=== PATIENT | male | born 1955 | race Caucasian/White ===

== ENCOUNTER → 2016-12-28 | Outpatient (REF) ==
[~2016-12-28] MED LIST: PRINIVIL10 MG PO
== END ==
LOC: ZLAB.WCH 18:11
DX: Z01.89 Encounter for other specified special examinations (principal)
CPT/HCPCS: G0103

== ENCOUNTER 2017-02-25 16:58 | Emergency (ER) | payer BC ==
[~2017-02-25] VITALS: Ht 172.7 cm; Wt 74.1 kg
[2017-02-25 17:03] VITALS: TEMP 97.6
[2017-02-25] MEDS ORDERED: PRINIVIL10 MG PO (17:08)
[2017-02-25 17:48] LABS: BASO % 0.5 % (0.0-2.0); EOS # 0.1 (0.0-0.7); EOS % 1.2 % (0-4.0); GRAN # 3.6 (1.4-6.5); GRAN % 60.7 % (42.2-75.2); HEMATOCRIT 42.8 % (42.0-52.0); HEMOGLOBIN 14.9 g/dl (13.5-18.0); LYMPH # 1.5 (1.2-3.4); LYMPH % 25.1 % (20.0-51.0); MEAN CELL VOLUME 96 fl (80.0-100.0); MEAN CORPUSCULAR HEMOGLOBIN 34 pg (27.0-31.0); MEAN CORPUSCULAR HGB CONC 35 g/dl (33.0-37.0); MEAN PLATELET VOLUME 9.9 fl (7.4-10.4); MONO # 0.7 (0.1-0.6); MONO % 12.3 % (1.7-9.3); PLATELET COUNT 115 K/mm3 (130-400); RED BLOOD COUNT 4.45 M/mm3 (4.20-5.60); REDCELL DISTRIBUTION WIDTH-CV 11.9 % (11.5-14.5); WHITE BLOOD COUNT 5.9 K/mm3 (4.8-10.8)
[2017-02-25 17:55] LABS: INR 0.9 (0.8-3.0); PROTHROMBIN TIME 10.2 SECONDS (9.7-12.8)
[2017-02-25 18:07] LABS: ALANINE AMINOTRANSFERASE 32 U/L (21-72); ALBUMIN 4.4 gm/dL (3.5-5.0); ALKALINE PHOSPHATASE 67 U/L (50-136); ANION GAP 10 mmol/L (7-16); BILIRUBIN,TOTAL 1.3 mg/dL (0.0-1.0); BLOOD UREA NITROGEN 32 mg/dL (9-20); CALCIUM 9.3 mg/dL (8.4-10.2); CARBON DIOXIDE 22 mmol/L (22-30); CHLORIDE 101 mmol/L (98-107); CREATINE KINASE 96 U/L (55-170); GLUCOSE 106 mg/dL (74-106); SODIUM 132 mmol/L (137-145); TOTAL PROTEIN 8.3 gm/dL (6.4-8.2)
[2017-02-25 18:24] LABS: POTASSIUM 5.9 mmol/L (3.4-5.0); TROPONIN-I < 0.012 ng/mL (0.000-0.034)
[2017-02-25 20:24] LABS: CALCIUM 9.1 mg/dL (8.4-10.2); CREATININE, serum 1.02 mg/dL (0.66-1.25)
[2017-02-25 20:32] LABS: POTASSIUM 4.8 mmol/L (3.4-5.0)
[2017-02-25 21:07] VITALS: BP 147/95; PULSE 86
== END 2017-02-25 21:08 | disposition home or self-care (01) ==
LOC: COL.ER 16:58
PROVIDERS: Emergency Medicine
DX: R42 Dizziness and giddiness (principal); E86.0 Dehydration; E87.5 Hyperkalemia; I10 Essential (primary) hypertension; F17.220 Nicotine dependence, chewing tobacco, uncomplicated
CPT/HCPCS: J0610; J1815; J7030

== ENCOUNTER 2017-10-14 09:06 | Outpatient (CLI) | payer BC ==
[2017-10-14] VITALS (10 sets, daily range): BP systolic 139–176; BP diastolic 91–113; PULSE 72–99; TEMP 97.8–98
[~2017-10-14] VITALS: Ht 172.8 cm; Wt 75.5 kg
[2017-10-14] MEDS ORDERED: MOBIC 7.5MG7.5 MG PO (10:07)
[2017-10-14] MEDS ORDERED: ULTRAM 50MG TAB50 MG PO (10:08)
== END 2017-10-14 16:17 | disposition home or self-care (01) ==
LOC: COL.CAR 09:06
DX: S22.080A Wedge compression fracture of T11-T12 vertebra, initial encounter for closed fracture (principal); I10 Essential (primary) hypertension
CPT/HCPCS: C1713; J0360; J2250; J3010; J7120

== ENCOUNTER 2020-09-12 11:33 | Inpatient (IN) | payer MEDICARE, BC ==
[~2020-09-12] VITALS: Ht 172.7 cm; Wt 79.5 kg
[~2020-09-12 11:33] MED LIST changes: +MOBIC 7.5MG7.5 MG PO; +ULTRAM 50MG TAB50 MG PO
[2020-09-12] MEDS ORDERED: ASPIRIN 81M81 MG/TA2 PO (12:30)
[2020-09-12 12:32] LABS: BASO % 0.3 % (0.0-2.0); EOS % 0.1 % (0-4.0); GRAN # 6.9 (1.4-6.5); GRAN % 77.8 % (42.2-75.2); HEMATOCRIT 36.8 % (42.0-52.0); HEMOGLOBIN 13.6 g/dl (13.5-18.0); LYMPH # 1.1 (1.2-3.4); LYMPH % 12.6 % (20.0-51.0); MEAN CELL VOLUME 99 fl (80.0-100.0); MEAN CORPUSCULAR HEMOGLOBIN 37 pg (27.0-31.0); MEAN CORPUSCULAR HGB CONC 37 g/dl (33.0-37.0); MEAN PLATELET VOLUME 10.8 fl (7.4-10.4); MONO # 0.8 (0.1-0.6); MONO % 8.6 % (1.7-9.3); PLATELET COUNT 118 K/mm3 (130-400); RED BLOOD COUNT 3.73 M/mm3 (4.20-5.60); REDCELL DISTRIBUTION WIDTH-CV 12.3 % (11.5-14.5)
[2020-09-12 12:41] LABS: ALBUMIN 3.2 gm/dL (3.5-5.0); BILIRUBIN,TOTAL 2.4 mg/dL (0.0-1.0); CREATININE, serum 0.71 (0.66-1.25); TOTAL PROTEIN 6.6 gm/dL (6.4-8.2)
[2020-09-12 12:46] LABS: POTASSIUM 2.4 mmol/L (3.4-5.0)
[2020-09-12 13:17] LABS: INR 1.1 (0.8-3.0); PROTHROMBIN TIME 12.7 SECONDS (9.7-12.8)
--- NOTE | 2020-09-12 14:28 | NUR ---
Sw consulted for patient in ED. Patient in room with sister Barbara Jj . Who is emergency contact. Patient reports that he has a friend Bakari Brown who helps sometimes. Patient has two estranged adult children who are not involved with him after his divorce, Annalee Luu in [place] and Annie Mccallum in [place]. Patient reports that he lives in [place] with his dog and he is could because he does not have heat. Patient reports that he has a pellet heater and has to put the pellets in but does not have the energy to do so. Patient reports that he often curls up with his dog and in his blanket. Patient reports that he has a new primary care at the [facility] who he first seen today. Allision, Unknown last name. Michele rpeorts that he would be does not want anyone in his home and that it is not in repair for anyone. Sister confirms the state of the clients home and it not being safe for a home health care worker to go in. Patient is visibily poor hygiene with brown debris on feet and under finger nails. Patient reports he has water but will not get in the bath because it was to cold. SW offered supports to help patient establish safe living conditions. Patient refused help and states that he must clean the home first. Patient reports that he obtains medications from [employer] and his friend Bakari helps with transpotation or sister. Patient no linger drives. Patient denies having any DME use and is independent living. Concerns of patient not eating. Educated patient on next step for safety and refusing to allow anyone to help. APS consult placed by worker #[id number] at 09/12/2020 2:26pm.
[2020-09-12 15:49] LABS: MAGNESIUM 1.5 mg/dL (1.6-2.3); PHOSPHOROUS 1.4 mg/dL (2.5-4.5)
--- NOTE | 2020-09-12 18:00 | NUR ---
PATIENT ADMITED INTO ROOM 307 FROM ER WITH GI BLEED, ELEVATED TROPONIN, AND ETOH. PATIENT IS A&O. VSS WITH TELE. DNR. IV FLUIDS INFUSING INTO LEFT FORARM IV VIA PUMP. CLEAR LIQUID DIET. GI CONSULT. HEAD TO TOE ASSESSMENT COMPLETE.
[2020-09-12 18:15] VITALS: BP 138/85; PULSE 91; TEMP 97.7
[2020-09-12 19:37] VITALS: BP 103/61; PULSE 100; TEMP 98.1
--- NOTE | 2020-09-12 20:00 | NUR ---
Assessment complete. Patient is currently resting in bed; He is alert and oriented for all questions besides the year; When asked a second time about the year, he is able to answer to correctly. He has no complaints of pain; No edema is present. He is tachycardic in the 90's and has a slight hand tremor. Fluids infusing into left forearm IV. Call light in reach. His sister Susie has been updated on patient's status. Will continue to monitor.
[2020-09-12 20:46] LABS: HEMOGLOBIN 12.2 g/dl (13.5-18.0)
[2020-09-12 20:52] LABS: HEMATOCRIT 33.4 % (42.0-52.0)
[2020-09-12 20:56] LABS: ANION GAP 2 mmol/L (7-16); BLOOD UREA NITROGEN 8 mg/dL (9-20); CALCIUM 7.5 mg/dL (8.4-10.2); CARBON DIOXIDE 35 mmol/L (22-30); CHLORIDE 95 mmol/L (98-107); CREATININE, serum 0.69 (0.66-1.25); GLUCOSE 106 mg/dL (74-106); POTASSIUM 3.1 mmol/L (3.4-5.0); SODIUM 132 mmol/L (137-145)
[2020-09-12 21:01] LABS: ALCOHOL(ethanol),MEDICAL < 10 mg/dL
[2020-09-12 23:19] VITALS: BP 120/73; PULSE 97; TEMP 98.4
[2020-09-13] VITALS (9 sets, daily range): BP systolic 124–142; BP diastolic 76–96; PULSE 84–106; TEMP 97.6–98.8
--- NOTE | 2020-09-13 06:19 | NUR ---
Patient has had an uneventful night. He has ambulated with assistance to the bathroom multiple times to void. He is still slightly disoriented at times but does answer orientation questions correctly. He has scored 4-6 on CIWA scale but has not required any Ativan, as he has remained pleasant, non-agitated and not impulsive. Will continue to monitor.
--- NOTE | 2020-09-13 06:59 | NUR ---
ENTERED PT ROOM, SET BED ALARM, PT SLEEPING COMFORTABLY
[2020-09-13 07:03] LABS: BASO % 0.6 % (0.0-2.0); EOS # 0.1 (0.0-0.7); EOS % 1.1 % (0-4.0); GRAN # 3.4 (1.4-6.5); GRAN % 62.5 % (42.2-75.2); HEMOGLOBIN 11.7 g/dl (13.5-18.0); LYMPH # 1.4 (1.2-3.4); LYMPH % 25.6 % (20.0-51.0); MEAN CORPUSCULAR HEMOGLOBIN 37 pg (27.0-31.0); MEAN CORPUSCULAR HGB CONC 35 g/dl (33.0-37.0); MEAN PLATELET VOLUME 11.4 fl (7.4-10.4); MONO # 0.5 (0.1-0.6); MONO % 9.8 % (1.7-9.3); PLATELET COUNT 76 K/mm3 (130-400); RED BLOOD COUNT 3.19 M/mm3 (4.20-5.60); REDCELL DISTRIBUTION WIDTH-CV 12.6 % (11.5-14.5)
[2020-09-13 07:05] LABS: HEMATOCRIT 33.1 % (42.0-52.0); MEAN CELL VOLUME 104 fl (80.0-100.0)
[2020-09-13 07:17] LABS: ALBUMIN 2.7 gm/dL (3.5-5.0); BILIRUBIN,TOTAL 1.5 mg/dL (0.0-1.0); CALCIUM 7.3 mg/dL (8.4-10.2); CREATININE, serum 0.63 (0.66-1.25); MAGNESIUM 1.9 mg/dL (1.6-2.3); PHOSPHOROUS 2.3 mg/dL (2.5-4.5); TOTAL PROTEIN 5.7 gm/dL (6.4-8.2)
[2020-09-13 07:23] LABS: POTASSIUM 2.8 mmol/L (3.4-5.0)
[2020-09-13 07:34] LABS: TROPONIN-I 0.063 ng/mL (0.000-0.035)
[2020-09-13 09:10] LABS: COLLECTION METHOD CLEAN CATCH
[2020-09-13 09:18] LABS: PH 7 (5-8); SQUAMOUS EPITHELIAL None Seen /hpf; URINE APPEARANCE Clear; URINE BACTERIA None Seen /hpf; URINE BILIRUBIN Negative (NEGATIVE); URINE BLOOD Negative (NEGATIVE); URINE COLOR Yellow; URINE GLUCOSE Negative (NEGATIVE); URINE KETONE Negative (NEGATIVE); URINE LEUKOCYTE ESTERASE Negative (NEGATIVE); URINE NITRATE Negative (NEGATIVE); URINE PROTEIN(semi-quant) Negative (NEGATIVE); URINE RBC 0-2 /hpf; URINE UROBILINOGEN >=4.0 mg/dL (NEGATIVE)
[2020-09-13 09:20] LABS: MUCOUS Present /lpf
--- NOTE | 2020-09-13 09:38 | NUR ---
PT AOX4, FALSE PASS, PT REPORTS PAIN DANICA FEET, FEET HAVE DRIED SKIN NO APPARENT WOUNDS, ICE WATER BROUGHT IN TO PT, MEDICATIONS GIVEN, POTASSIUM REPLACED PER PROTOCOL, NO OTHER NEEDS.
[2020-09-13 12:52] LABS: HEMOGLOBIN 12.2 g/dl (13.5-18.0)
--- NOTE | 2020-09-13 12:52 | NUR ---
NOTIFIED KAVYA CROW OF ORTHOSTATIC PRESSURES.
[2020-09-13 12:54] LABS: HEMATOCRIT 34.6 % (42.0-52.0)
[2020-09-13 13:00] LABS: CALCIUM 7.5 mg/dL (8.4-10.2); CREATININE, serum 0.63 (0.66-1.25); POTASSIUM 3.3 mmol/L (3.4-5.0)
--- NOTE | 2020-09-13 16:52 | NUR ---
Audiovisual Production Specialist followed up with patient and patient's sister, Barbara about discharge plan. SW advised PT/OT recommend post acute rehab. Patient is agreeable to this and would like referrals sent to [facility] and [facility]. SW faxed referrals and will continue to follow.
--- NOTE | 2020-09-13 17:37 | NUR ---
PT IMPULSIVE, TRIES TO GET UP MULTIPLE TIMES, INC OF STOOL, BOWL PREP INITIATED, CONSENT OBTAINED, FAMILY UPDATED ON SITUATION, NO OTHER NEEDS.
--- NOTE | 2020-09-13 18:18 | NUR ---
NURSE LOOKED INTO ROOM AND PT WAS SITTING ON HIS KNEES. TABLE WAS OVERTURNED, IV LINE WAS PULLED TAUGHT BUT STILL INTACT, PT HELPED BACK INTO BED, VITALS TAKEN, ATIVAN GIVEN, BOO CROW NOTIFIED OF SITUATION.
--- NOTE | 2020-09-13 21:50 | NUR ---
PT DOWN IN CT AFTER FALL AT SHIFT CHANGE. AFTER COMING BACK UP ATTEMPTED TO GET OUT OF BED SETTIN OFF ALARM , PULLED OUT IV SITE AND SPLIT GOLYTLY ALL OVER. HARD TO ASSESS PT DOESNT ANSWER QUESTOINS APPROPRIATLY. IV RESTARTED TO RT AC. NOT ABLE TO GET HIM TO DRINK FOR BOWEL PREP. CHARGE NOTIFIED AND WILL LET DOCS KNOW IN AM. BED ALARM ON PRN ATIVAN GIVEN
[2020-09-14 16:14] LABS: CLOSTRIDIUM DIFF A/B NEG; CLOSTRIDIUM DIFF A/B INTERP No C.diff present
[2020-09-14 22:38] VITALS: BP 136/88; BP 139/89; PULSE 88; PULSE 94; TEMP 97.9; TEMP 98.6
--- NOTE | 2020-09-14 23:21 | NUR ---
2000- PT STARTING TO GET MORE AGITATED DURING ASSESSMENT. SITTER AT BEDSIDE FOR SAFTY. MITS ON HAND. BED IN LOW POSTION. VISIBLE TREMORS AND TACTIL HALLCINATION. IV FLUIDS CONT TO RUN PER ORDER. PRN ATIVAN GIVEN NEEDED PER SCORE. BRIEF CHANGED, LINENS CHANGED.
[2020-09-15] VITALS (9 sets, daily range): BP systolic 13–140; BP diastolic 74–90; PULSE 85–101; TEMP 97.7–98.6
--- NOTE | 2020-09-15 01:38 | NUR ---
Pt has been resting quietly, episodes of apnea. Sitter remains at bedside for safty. Continue monitoring.
--- NOTE | 2020-09-15 04:34 | NUR ---
PT CONTINUES TO REST TONIGHT. NOTED SOME APNIC BREATHING AT TIMES. SITTER REMAINS AT BEDSIDE.
[2020-09-15 07:06] LABS: BASO # 0.1 (0.0-0.2); BASO % 0.8 % (0.0-2.0); EOS # 0.2 (0.0-0.7); EOS % 3.9 % (0-4.0); GRAN # 3.6 (1.4-6.5); GRAN % 59.6 % (42.2-75.2); HEMOGLOBIN 12.8 g/dl (13.5-18.0); LYMPH # 1.3 (1.2-3.4); LYMPH % 20.9 % (20.0-51.0); MEAN CELL VOLUME 104 fl (80.0-100.0); MEAN CORPUSCULAR HEMOGLOBIN 37 pg (27.0-31.0); MEAN CORPUSCULAR HGB CONC 36 g/dl (33.0-37.0); MEAN PLATELET VOLUME 10.1 fl (7.4-10.4); MONO # 0.9 (0.1-0.6); MONO % 14.1 % (1.7-9.3); PLATELET COUNT 119 K/mm3 (130-400); RED BLOOD COUNT 3.47 M/mm3 (4.20-5.60); REDCELL DISTRIBUTION WIDTH-CV 12.9 % (11.5-14.5)
[2020-09-15 07:29] LABS: ALBUMIN 2.8 gm/dL (3.5-5.0); BILIRUBIN,TOTAL 1.2 mg/dL (0.0-1.0); CALCIUM 7.8 mg/dL (8.4-10.2); CREATININE, serum 0.56 (0.66-1.25); MAGNESIUM 1.8 mg/dL (1.6-2.3); PHOSPHOROUS 3.1 mg/dL (2.5-4.5); POTASSIUM 3.9 mmol/L (3.4-5.0); TOTAL PROTEIN 6.2 gm/dL (6.4-8.2)
--- NOTE | 2020-09-15 07:37 | NUR ---
Patient laying at an angle in bed. Patient A&Ox4. IV CDI, fluids infusing. VSS. Mitts on hands, patient states "want to get these the hell off" Nurse informed patient that he has pulled several IV's out and its to help him to prevent that from happening again. Patient incontinent of urine. Nursing staff provided total care and repositioned patient for comfort. Call light within reach. Bed alarm on and door left open.
--- NOTE | 2020-09-15 08:42 | NUR ---
(late entry 09/14) Onelia from [facility] reports they can accept the patient for post acute rehab. [facility] declined the patient.
[2020-09-15 09:48] LABS: ALANINE AMINOTRANSFERASE 36 U/L (4-49); ALBUMIN 2.8 gm/dL (3.5-5.0); ALKALINE PHOSPHATASE 70 U/L (50-136); ANION GAP 4 mmol/L (7-16); AST,SGOT 87 U/L (15-37); BILIRUBIN,TOTAL 1.1 mg/dL (0.0-1.0); BLOOD UREA NITROGEN < 2 mg/dL (9-20); CALCIUM 7.6 mg/dL (8.4-10.2); CARBON DIOXIDE 34 mmol/L (22-30); CHLORIDE 99 mmol/L (98-107); CREATININE, serum 0.58 (0.66-1.25); GLUCOSE 91 mg/dL (74-106); MAGNESIUM 1.7 mg/dL (1.6-2.3); PHOSPHOROUS 3.5 mg/dL (2.5-4.5); POTASSIUM 3.1 mmol/L (3.4-5.0); SODIUM 137 mmol/L (137-145)
--- NOTE | 2020-09-15 14:31 | NUR ---
Dry Kiln Feeder met with the patient and his sister, Barbara to follow up. The patient was sleeping. She reports she has received a call from Onelia at [facility] regarding placement and possibly having the patient complete DPOA- paperwork. The patient was hard to rouse and this SW did not discuss DPOA- paperwork at this time. The patient is not but has two daughters, Nate lives in [place] and Annalee lives in [place]. Annalee's phone number is . CLAUDIO faxed updates to [facility].
[2020-09-15 14:35] LABS: BASO % 0.6 % (0.0-2.0); EOS # 0.1 (0.0-0.7); EOS % 2.6 % (0-4.0); GRAN % 58.7 % (42.2-75.2); HEMOGLOBIN 12.3 g/dl (13.5-18.0); LYMPH # 1.3 (1.2-3.4); LYMPH % 24.7 % (20.0-51.0); MEAN CELL VOLUME 106 fl (80.0-100.0); MEAN CORPUSCULAR HEMOGLOBIN 37 pg (27.0-31.0); MEAN CORPUSCULAR HGB CONC 35 g/dl (33.0-37.0); MEAN PLATELET VOLUME 10.4 fl (7.4-10.4); MONO # 0.7 (0.1-0.6); MONO % 12.8 % (1.7-9.3); PLATELET COUNT 95 K/mm3 (130-400); RED BLOOD COUNT 3.32 M/mm3 (4.20-5.60); REDCELL DISTRIBUTION WIDTH-CV 12.9 % (11.5-14.5)
[2020-09-15 14:36] LABS: HEMATOCRIT 35.1 % (42.0-52.0)
--- NOTE | 2020-09-15 15:49 | NUR ---
Shell Molding Roller Blast Operator contacted Onelia with [facility]. She states if the patient is ready for discharge on Saturday, 09/16 the latest they need to know by is 1000 so they can get their team ready. Otherwise they will not be able to accept until September 19. They will be able to provide transporation.
--- NOTE | 2020-09-15 16:27 | NUR ---
Pitching Coach faxed clinical updates to [facility].
--- NOTE | 2020-09-15 18:22 | NUR ---
Patient slept most of the shift. Has been A&Ox4, with intermittent confusion after waking up. VSS. IV CDI, fluids infusing. Denies pain and discomfort. Mitts removed and patient has not tried to take IV's out. Bowel prep started on patient and the patient verbalized an understanding for starting. No further needs expressed from the patient. Call light within reach. Bed alarm on, door left open
--- NOTE | 2020-09-15 19:30 | NUR ---
RECEIVED CHANGE OF SHIFT REPORT FROM DAY SHIFT NURSE.
--- NOTE | 2020-09-15 20:30 | NUR ---
PATIENT COOPERATIVE AT THIS TIME, NEEDS REMINDERS TO DRINK GOLYTELY PREP, HAS NO COMPLAINTS OF ABDOMINAL DISCOMFORT OR NAUSEA AT THIS TIME. OBSERVED NO TREMORS AT THIS TIME. IVF INFUSING WITH NO PROBLEMS. TELE IN PLACE.
[2020-09-16] VITALS (12 sets, daily range): BP systolic 110–155; BP diastolic 66–98; PULSE 83–106; TEMP 97.7–98.6
--- NOTE | 2020-09-16 06:00 | NUR ---
OBSERVED STOOL CLEAR LIGHT GREEN IN COLOR.
[2020-09-16 06:33] LABS: ALANINE AMINOTRANSFERASE 26 U/L (4-49); ALBUMIN 2.8 gm/dL (3.5-5.0); ALKALINE PHOSPHATASE 74 U/L (50-136); ANION GAP 4 mmol/L (7-16); AST,SGOT 52 U/L (15-37); BILIRUBIN,TOTAL 1.1 mg/dL (0.0-1.0); CALCIUM 7.8 mg/dL (8.4-10.2); CARBON DIOXIDE 30 mmol/L (22-30); CHLORIDE 102 mmol/L (98-107); CREATININE, serum 0.56 (0.66-1.25); GLUCOSE 102 mg/dL (74-106); MAGNESIUM 1.9 mg/dL (1.6-2.3); POTASSIUM 3.5 mmol/L (3.4-5.0); SODIUM 136 mmol/L (137-145); TOTAL PROTEIN 6.1 gm/dL (6.4-8.2)
[2020-09-16 06:34] LABS: BLOOD UREA NITROGEN < 2 mg/dL (9-20)
[2020-09-16 06:57] LABS: HEMATOCRIT 36.1 % (42.0-52.0); HEMOGLOBIN 12.8 g/dl (13.5-18.0); MEAN CELL VOLUME 103 fl (80.0-100.0); MEAN CORPUSCULAR HEMOGLOBIN 37 pg (27.0-31.0); MEAN CORPUSCULAR HGB CONC 36 g/dl (33.0-37.0); MEAN PLATELET VOLUME 9.9 fl (7.4-10.4); PLATELET COUNT 149 K/mm3 (130-400); RED BLOOD COUNT 3.49 M/mm3 (4.20-5.60); REDCELL DISTRIBUTION WIDTH-CV 12.9 % (11.5-14.5)
--- NOTE | 2020-09-16 07:05 | NUR ---
CHANGE OF SHIFT REPORT GIVEN TO DAY SHIFT NURSEKAVYA RN
--- NOTE | 2020-09-16 07:19 | NUR ---
Pt resting with eyes closed even non labored breathing
--- NOTE | 2020-09-16 09:14 | NUR ---
Several attempts to visit; Patient sleeping, Electron Microscopist left card letting patient know of Electron Microscopist's availability to provide Spiritual Care.
--- NOTE | 2020-09-16 10:45 | NUR ---
Pt sleeping off and on this morning. When he is awake he is impatient regarding having the colonoscopy. No pain complaints. Will continue to monitor
--- NOTE | 2020-09-16 12:13 | NUR ---
Pt continues to be off the floor for procedure
--- NOTE | 2020-09-16 13:54 | NUR ---
Primary nurse was assisted with [phone] patient care by [employer] [facility] Jewell Avina and [employer] instructor Christina Saez RN-BC.
--- NOTE | 2020-09-16 15:29 | NUR ---
Pt has done well since getting back from procedure. He has tolerated a general diet and is now resting with eyes closed, even non labored breathing.
--- NOTE | 2020-09-16 16:31 | NUR ---
Calender Machine Operator met with the patient and the patient's sister, Barbara to review the discharge plan. They both were in agreeance with a discharge to [facility] for post acute rehab on Saturday if the patient is medically stable.
--- NOTE | 2020-09-16 17:51 | NUR ---
Pt doing well, he is in a pleasent mood. No complaints at this time, he is eating dinner. No needs verbalized, will continue to monitor
--- NOTE | 2020-09-16 19:04 | NUR ---
Pt has continued to do well. He is having liquid stools and does need to go quickly. Bed alarm on, report given
--- NOTE | 2020-09-16 19:24 | NUR ---
RECEIVED CHANGE OF SHIFT REPORT FROM DAY SHIFT NURSE.
--- NOTE | 2020-09-16 20:00 | NUR ---
DENIES CHEST PAIN/SHORTNESS BREATH. DENIES ANY PAIN TO SELF/BODY. SALINE LOCK INT AND IN PLACE. TELE IN PLACE. BED ALARM ON, WHEN IN BED.
[2020-09-17] VITALS (7 sets, daily range): BP systolic 96–132; BP diastolic 65–93; PULSE 77–96; TEMP 97.7–98.9
[2020-09-17 06:49] LABS: BASO % 0.8 % (0.0-2.0); EOS # 0.2 (0.0-0.7); EOS % 3.1 % (0-4.0); GRAN # 2.8 (1.4-6.5); GRAN % 54.3 % (42.2-75.2); HEMOGLOBIN 12.4 g/dl (13.5-18.0); LYMPH # 1.4 (1.2-3.4); LYMPH % 27.6 % (20.0-51.0); MEAN CELL VOLUME 105 fl (80.0-100.0); MEAN CORPUSCULAR HEMOGLOBIN 36 pg (27.0-31.0); MEAN CORPUSCULAR HGB CONC 35 g/dl (33.0-37.0); MEAN PLATELET VOLUME 10.2 fl (7.4-10.4); MONO # 0.7 (0.1-0.6); MONO % 13.4 % (1.7-9.3); PLATELET COUNT 179 K/mm3 (130-400); RED BLOOD COUNT 3.41 M/mm3 (4.20-5.60)
[2020-09-17 07:00] LABS: CALCIUM 7.9 mg/dL (8.4-10.2); CREATININE, serum 0.57 (0.66-1.25); POTASSIUM 3.6 mmol/L (3.4-5.0)
[2020-09-17 07:13] LABS: HEMATOCRIT 35.7 % (42.0-52.0)
--- NOTE | 2020-09-17 07:20 | NUR ---
Pt doing well, he is awake and I assisted him with ordering breakfast. No other needs verbalized, will continue to monitor
--- NOTE | 2020-09-17 07:52 | NUR ---
CHANGE OF SHIFT REPORT GIVEN TO DAY SHIFT NURSEKAVYA RN
--- NOTE | 2020-09-17 16:52 | NUR ---
Pt has done well today. He is alert and oriented. He mostly uses his call light when he needs to use the restroom. Bed alarm is on. He does use a walker and is mostly steady on his feet. Pt did take a shower today. No pain complaints and he is aware that he is going to [place] on Saturday.
--- NOTE | 2020-09-17 20:00 | NUR ---
Assessment complete. Patient is awake in bed; He is alert and oriented with no complaints of pain. Heart sounds are normal/regular, lungs clear, bowel sounds audible in all quadrants. No edema or skin issues are noted. Left wrist INT flushes well. Patient breathing well on RA and swallows pills whole with no issues. Bed alarm on and call light in reach,
[2020-09-18 00:47] VITALS: BP 128/80; PULSE 84; TEMP 99.4
[2020-09-18 04:27] VITALS: BP 142/87; PULSE 85; TEMP 98
[2020-09-18 06:52] LABS: CALCIUM 8.2 mg/dL (8.4-10.2); CREATININE, serum 0.61 (0.66-1.25); MAGNESIUM 1.7 mg/dL (1.6-2.3); POTASSIUM 3.6 mmol/L (3.4-5.0)
[2020-09-18 07:18] VITALS: BP 153/91; PULSE 86; TEMP 97.6
--- NOTE | 2020-09-18 08:11 | NUR ---
Pt awake and alert upon entry, sitting on side of bed eating breakfast. No C/O pain at this time. Shift assessments complete, left Pt sales management trainee of bed, call light in reach.
[2020-09-18 11:38] VITALS: BP 120/72; PULSE 91; TEMP 97.4
[2020-09-18 16:18] VITALS: BP 122/75; PULSE 80; TEMP 98.5
[2020-09-18 19:43] VITALS: BP 107/64; PULSE 84; TEMP 98.7
--- NOTE | 2020-09-18 20:41 | NUR ---
Patient laying in bed and reading book upon shift start. Patient alert and oriented. Patient denies any pain or discomfort. Denies SOB or dyspnea. Patient on room air. VS stable. No acute distress noted. K+ level was 3.6 today. Replaced potassium per protocol. All scheduled meds given per SEP. Call light within reach. Patient denies any needs at this time.
[2020-09-19] VITALS: BP 124/75; PULSE 84; TEMP 98.2
[2020-09-19 04:30] VITALS: BP 124/82; PULSE 75; TEMP 98.3
--- NOTE | 2020-09-19 06:02 | NUR ---
Patient slept on and off over the night. VS remains stable. No acute distress noted. Call light within reach. Patient denies any needs at this time.
--- NOTE | 2020-09-19 07:06 | NUR ---
Report with DAMIÁN Tapia. Pt gets assistance from DIRECTOR OF CORPORATE RESPONSIBILITY to get dressed, takes Telemetry off to be "ready to go." No further needs reported. Call light in reach. Bed alarm on.
[2020-09-19] MEDS ORDERED: FOLIC ACID 11 MG/TA1 PO (07:46)
[2020-09-19] MEDS ORDERED: PROTONIX 40MG T40 MG PO (07:46)
[2020-09-19] MEDS ORDERED: THIAMINE 1100 MG/TAB PO (07:46)
[2020-09-19] MEDS ORDERED: DUO-KAPS1 CAP PO (07:47)
--- NOTE | 2020-09-19 08:30 | NUR ---
Assessment complete. Pt resting in bed, A&O x 3, denies pain at this time. Physical assesment unremarkable. Pt reports feeling ready for discharge. Saline lock IV to left forearm without s/s of complications. No further needs reported. Call light in reach. Bed alarm on.
[2020-09-19] MEDS ORDERED: MAG-OX 400400 MG/TAB PO (08:39)
[2020-09-19 08:41] VITALS: BP 112/75; PULSE 88; TEMP 97.7
--- NOTE | 2020-09-19 09:56 | NUR ---
The patient is ready to d/c today, 09/19. CLAUDIO notified and faxed updates to Onelia at [facility]. Onelia requested updates from over the weekend. CLAUDIO faxed updates to [facility]. Onelia reports that they are able to take the patient. CLAUDIO contacted and updated the patient's sister, Barbara. The patient is to discharge today, 09/19, to [facility] for a skilled stay. Transportation was scheduled at 1230, via [facility]. CLAUDIO informed the patient's RN and his sister, Barbara, of the time. They were both agreeable to the time. CLAUDIO presented and read the IM form outloud to the patient. The patient verbalized understanding and gave CLAUDIO approval to sign the form on his behalf. CLAUDIO provided him with a copy. No additional needs at this time.
[2020-09-19 12:00] VITALS: BP 112/75; PULSE 88; TEMP 97.7
[2020-09-19 12:05] VITALS: BP 101/66; PULSE 95; TEMP 97.8
--- NOTE | 2020-09-19 12:33 | NUR ---
Report called to Brandi, nurse at [facility]. IV discontinued from left forearm with tip intact.
--- NOTE | 2020-09-19 12:45 | NUR ---
Pt discharged to [facility] via WC accompanied by SNF staff.
--- NOTE | 2020-09-21 09:16 | NUR ---
human services worker informed Eveline with Adult Protective Services that patient was transferred to [facility] upon discharge Socorro stated she will meet with patient this date.
== END 2020-09-19 12:45 | DRG 393 ==
LOC: COL.ER 11:33 → MEDICAL 15:39
PROVIDERS: Internal Medicine Gastroenterology; Physician Assistant; ADMIT Hospitalist
PROC: 0DBN8ZX Excision of Sigmoid Colon, Via Natural or Artificial Opening Endoscopic, Diagnostic (ICD-10-PCS; 2020-09-16)
PROC: 0DB68ZX Excision of Stomach, Via Natural or Artificial Opening Endoscopic, Diagnostic (ICD-10-PCS; principal; 2020-09-16 10:45)
PROC: 0DBK8ZZ Excision of Ascending Colon, Via Natural or Artificial Opening Endoscopic (ICD-10-PCS; 2020-09-16 10:45)
DX: K55.9 Vascular disorder of intestine, unspecified (principal); I21.A1 Myocardial infarction type 2; F10.139 Alcohol abuse with withdrawal, unspecified; E87.1 Hypo-osmolality and hyponatremia; I10 Essential (primary) hypertension; I95.1 Orthostatic hypotension; D69.6 Thrombocytopenia, unspecified; E87.8 Other disorders of electrolyte and fluid balance, not elsewhere classified; E87.6 Hypokalemia; E83.42 Hypomagnesemia; E83.39 Other disorders of phosphorus metabolism; E80.6 Other disorders of bilirubin metabolism; K76.0 Fatty (change of) liver, not elsewhere classified; D12.2 Benign neoplasm of ascending colon; D50.0 Iron deficiency anemia secondary to blood loss (chronic); K64.0 First degree hemorrhoids; K59.00 Constipation, unspecified; F17.200 Nicotine dependence, unspecified, uncomplicated; K29.20 Alcoholic gastritis without bleeding; I45.10 Unspecified right bundle-branch block; I44.4 Left anterior fascicular block; Z20.822 Contact with and (suspected) exposure to COVID-19; Z86.73 Personal history of transient ischemic attack (TIA), and cerebral infarction without residual deficits; Z79.82 Long term (current) use of aspirin
CPT/HCPCS: 99222-AI; 99231-AI; 99232-AI; 99239; C9113; J1644; J2060; J2704; J3411; J3475; J3480; J7030; J7050; Q9967